=== PATIENT | female | born 1995 | race African-American/Black ===

== ENCOUNTER 2018-01-10 11:09 | Emergency (ER) | payer OTHER ==
[~2018-01-10] VITALS: Ht 162.6 cm; Wt 68.0 kg
[2018-01-10 11:13] VITALS: BP 114/67
[2018-01-10] MEDS ORDERED: ACETAMINOPHEN 325MG TABLET PO ONE (11:45)
== END 2018-01-10 14:45 | disposition left against medical advice (07) ==
LOC: ER 11:09
DX: Z53.21 Procedure and treatment not carried out due to patient leaving prior to being seen by health care provider (principal)